=== PATIENT | female | born 1970 | race Caucasian/White ===

== ENCOUNTER → 2016-10-12 | Outpatient (CLI) | payer BC ==
[~2016-10-12] MED LIST: ASPEC81 PO; ATOR-24 PO; DULO60CA44 PO; LANS30CA12 PO; LSN25 PO; NCDT14 TD; ONDA8TAB6 PO; OXYC7.5T65 PO; PLV75 PO; POTA10CA28 PO; RANI300T2 PO; TRAM100T PO
[2016-10-12 13:47] LABS: BLOOD UREA NITROGEN 9 mg/dl (7-18)
== END | disposition home or self-care (01) ==
LOC: C.LAB 11:50
PROVIDERS: ATTEND Orthopaedic Surgery Orthopaedic Surgery of the Spine
DX: Z01.812 Encounter for preprocedural laboratory examination (principal)

== ENCOUNTER → 2016-10-14 | Outpatient (CLI) | payer BC ==
[~2016-10-14] MED LIST changes: +GADAVIST IV PRN
--- NOTE | 2016-10-14 11:22 | DIAGNOSTIC IMAGING REPORT ---
CERVICAL SPINE MRI WITH AND WITHOUT CONTRAST HISTORY: Neck pain. CERVICAL DISC DISEASE TECHNIQUE: Multiplanar multisequence MRI of the cervical spine was performed both before and after the use of intravenous contrast. COMPARISON STUDY: Cervical spine 07/10/2009. FINDINGS: Straightening of the cervical spine. Alignment is intact. No fractures identified. Prevertebral soft tissues and the C1-C2 interval are intact. Mild disc space narrowing at C5-C6. Anterior cervical discectomy and fusion at C6-C7. Visualized posterior fossa is within normal limits. Cervical spinal cord demonstrates a normal signal intensity. C2-C3: No significant central canal or neural foraminal narrowing. C3-C4: No central canal narrowing. Mild bilateral neural foraminal narrowing due to the uncovertebral hypertrophy. C4-C5: Small broad-based posterior osteophyte complex asymmetric to the right resulting in partial effacement of the anterior thecal sac without cord deformity. There is also mild right neural from narrowing. C5-C6: Small broad-based posterior disc osteophyte complex which abuts but does not deform the anterior cord. No significant neural foraminal narrowing. C6-C7: Status post anterior cervical discectomy. The endplates are fused posteriorly and there is small area of focal bony protrusion posteriorly from the fused endplates. This abuts but does not deform the anterior cord. No significant neural foraminal narrowing. C7-T1: Small left paracentral focal disc protrusion which measures 5 x 2 mm. This results in mild deformity of the anterior thecal sac but does not abut the cord. No significant neural foraminal narrowing. IMPRESSION: 1. Straightening of the cervical spine. 2. Anterior cervical discectomy and fusion at C6-C7. Small focal area of posterior bony protrusion due to the fused endplate at this location. This abuts but does not deform the anterior cord. 3. Small left paracentral focal disc protrusion at C7-T1 which partially effaces the left anterior thecal sac without cord deformity. 4. Additional mild degenerative changes at C4-C5 and C5-C6 as described above. Electronically signed by: Santana Avendano M.D. 10/14/2016 11:21 AM Dictated Date/Time: 10/14/2016 11:06 AM
== END | disposition home or self-care (01) ==
LOC: C.MRI 09:39
PROVIDERS: ATTEND Orthopaedic Surgery Orthopaedic Surgery of the Spine
DX: M50.20 Other cervical disc displacement, unspecified cervical region (principal); Z98.1 Arthrodesis status